=== PATIENT | female | born 1960 | race Caucasian/White ===

== ENCOUNTER 2017-09-28 00:06 | Day surgery (SDC) | payer OTHER ==
[~2017-09-28] VITALS: Ht 170.2 cm; Wt 68.9 kg
[2017-09-28] VITALS (7 sets, daily range): BP systolic 78–108; BP diastolic 51–65
[~2017-09-28 00:06] MED LIST: ACET-1966 PO; ALBUTEROL INHALER; ANTIBIOTIC; CYCL-277 PO; ETHI1TAB26 PO; FLUT16SP19 NS; GOLYTE PO; LEVO100T95 PO; LEVO50TA80 PO; LEVO75TA68 PO; LEVO88TA43 PO; LORA-788 PO; ONDA4TAB PO; PROAIRPT IH; RIZA5TAB26 PO; SCOP1PAT16 TD; TAMO20TA24 PO
[2017-09-28] MEDS ORDERED: LIDOCAINE/SOD BICARB 8.4% SYR ID ONE (06:30)
[2017-09-28] MEDS ORDERED: NORMOSOL R SOLN(*) 1000 ML BAG 1,000 ML IV PRN (06:30)
[2017-09-28] MEDS ORDERED: PROPOFOL EMUL(*) 10MG/ML 20 ML 40 ML ONE (07:03)
--- NOTE | 2017-09-28 08:03 | Short(Outpt) Discharge Summary ---
Discharge Summary Reason for Hosp/Final Diag: (1) Colon cancer screening Status: Chronic Hospital Course & Plan: Colonoscopy completed without any problems. Normal. C -scope in 10 years. Departure Discharge to: Home, Self Care Discharge Instructions Home Meds Active Scripts Ondansetron (ZOFRAN ODT) 4 Mg Tab.rapdis, 1 TAB PO ONCE Y for NAUSEA, #1 TAB.SARAH 0 Refills Prov:SEAN PABLO MD 08/26/17 Scopolamine (Scopolamine) 1 Mg/3 Day Patch.td.3, 1 PATCH.72H TD ONCE, #1 PATCH.72H 0 Refills Prov:SEAN PABLO MD 08/26/17 Peg/Electrolytes (GOLYTELY SOLUTION) 4,000 Ml Soln, 1 GAL PO ONCE, #1 GAL 0 Refills Prov:SEAN PABLO MD 08/26/17 Reported Medications Loratadine (LORATADINE) 10 Mg Tab.rapdis, 10 MG PO PRN 09/20/17 Acetaminophen (TYLENOL) 325 Mg Tablet, 1-2 TAB PO PRN, TAB 08/29/17 Fluticasone Prop 50 Mcg Ns (FLONASE 50 MCG NS) 16 Gm Atco.susp, 1 SPRAY NS PRN , BOT 08/29/17 Cyclobenzaprine Hcl (CYCLOBENZAPRINE HCL) 5 Mg Tablet, 5 MG PO PRN, #9 TAB 08/29/17 Rizatriptan Benzoate (RIZATRIPTAN) 5 Mg Tablet, 5 MG PO PRN 08/29/17 Levothyroxine Sodium (SYNTHROID) 100 Mcg Tablet, 100 MCG PO 2XW 08/29/17 Levothyroxine Sodium (SYNTHROID) 88 Mcg Tablet, 88 MCG PO 5 days/week 08/29/17 Tamoxifen Citrate (TAMOXIFEN CITRATE) 20 Mg Tablet, 20 MG PO QDAY 08/29/17 Diet: Regular Activity: As Tolerated Special Instructions: Your colonoscopy was completed without any problems and your prep was excellent (Good Job!!). Your colonoscopy was completely normal. I recommend that you have another colonoscopy in 10 years for screening. SEAN PABLO MD Sep 28, 2017 08:03
== END 2017-09-28 10:00 | disposition home or self-care (01) ==
LOC: OR 00:06
PROVIDERS: ATTEND Surgery
DX: Z12.11 Encounter for screening for malignant neoplasm of colon (principal)
CPT/HCPCS: 00812; 45378; J2704

== ENCOUNTER → 2018-02-08 | Outpatient (CLI) | payer OTHER ==
[~2018-02-08] MED LIST changes: +BARIUM SULFATE 176 GM BTL PO ONE; +BARIUM SULFATE 340 GM POWD ONE
--- NOTE | 2018-02-08 16:47 | RADIOLOGY IMAGING REPORT ---
FACILITY: [facility] - [place] PATIENT NAME: Viola Madden : 1960 MR: [id number] V: [id number] EXAM DATE: ORDERING PHYSICIAN: JATIN GOEMZ TECHNOLOGIST: Location[place] [facility] [place] Patient: Viola Madden : 1960 Visit/Account:[id number] Date of Sevice: 02/08/2018 Exam type: UPPER GI SERIES W/O AIR History: Pain under left breast and stomach area x6 months, Comparison: None. Findings: Double contrast esophagram was performed with thick and thin barium and air contrast. A small amount of gastroesophageal reflux was observed. There was mild narrowing at the lower esopha geal sphincter. No other abnormality of the stomach duodenal bulb or duodenal C-loop was seen. The fluoroscopy dose area product was 637.86 micro-Galvez per meter squared IMPRESSION: 1. A small amount of gastric soft reflux was observed with mild narrowing at the lower esophageal sp hincter. Report Dictated By: Amanda Hodge MD at 02/08/2018 4:41 PM Report E-Signed By: Amanda Hodge MD at 02/08/2018 4:44 PM WSN:[email or web address]
== END ==
LOC: RAD 02:07
PROVIDERS: ATTEND Family Medicine
DX: K21.9 Gastro-esophageal reflux disease without esophagitis (principal)
CPT/HCPCS: 74240